=== PATIENT | female | born 1970 | race African-American/Black ===

== ENCOUNTER 2016-07-14 06:45 | Inpatient (IN) | payer OTHER ==
--- NOTE | 2016-07-12 12:04 | HP ---
DATE OF ADMISSION: 07/14/[address] Elizondo: Thank you for asking me to see this 45-year-old woman who is being admitted to the hospital for a to [place] reverse shoulder replacement. The patient has had ongoing right shoulder pain, swelling, and re duced range of motion for the past many months following an accident. REVIEW OF SYSTEMS: Generally unremarkable to all questions except for pain in her right shoulder ar ea which radiates up and down the arm and the neck. She regularly gets gynecologic care. Her last period was on July 08. CURRENT MEDICATIONS: None. ALLERGIES: NONE. FAMILY HISTORY: The patient is . She lives by herself. There is a sister who is also aiden garcia. She was born in [place]. She has no children. PREVIOUS MEDICAL PROBLEMS: Negative except for her accident which occurred about a year ago. SOCIAL HISTORY: The patient is a nonsmoker and does not use significant alcohol. PAST SURGICAL HISTORY: Includes only arthroscopy of the knee. PHYSICAL EXAMINATION: GENERAL: The patient is alert, oriented, pleasant lady in no acute distress. VITAL SIGNS: Blood pressure is 130/80. She is afebrile. Pulse is 92. She weighs 147 pounds. Her height is 5 feet 0 inches tall. HEAD, EYES, EARS, NOSE, AND THROAT: Unremarkable. CHEST: Clear to auscultation. No murmurs are heard. ABDOMEN: Soft without palpable mass, organ, or tenderness. EXTREMITIES: No clubbing, cyanosis, or edema. He has some swelling and significant tenderness over the right shoulder which she cannot move at all without significant pain. NEUROLOGIC: Unremarkable. INITIAL IMPRESSION: Arthritis and pain in the right shoulder, preoperative status. DISCUSSION: The patient's medical status is ____ for planned surgery. Electrocardiogram and chest x-ray are unremarkable. Lymphadenopathy tests have been performed and will be followed too. Thank you for asking us to see Ms. Rodriguez at this time. Dictated By: TY MATHIS MD SR/NTS Conf#: [id number] DID#: [id number]
[~2016-07-14] VITALS: Ht 152.4 cm; Wt 68.0 kg
[2016-07-14] VITALS (27 sets, daily range): BP systolic 113–168; BP diastolic 56–88; PULSE 58–93; RESP 12–25; Ht 152.4 cm; Wt 68.0 kg
--- NOTE | 2016-07-14 06:45 | HPN ---
Date/Time of Note Date/Time of Note DATE: 07/14/16 TIME: 06:45 Interval H&P Admission Note Pt. seen H&P reviewed: No system changes CHAIM NGUYEN MD July 14, 2016 06:45
[2016-07-14] MEDS ORDERED: DEXAMETHASONE 1 MG TAB PO ONE (07:00)
[2016-07-14] MEDS ORDERED: BUPIVACAINE 0.5% (SDV) 30 ML, morphine SULFATE (PF) 8 MG, EPINEPHrine 0.3 MG, KETOROLAC... IRR SCH ×7 (07:00)
[2016-07-14] MEDS ORDERED: PROPOFOL 1000 MG INJ ONE (07:00)
[2016-07-14] MEDS ORDERED: traMADol 50 MG TAB PO ONE (07:00)
[2016-07-14] MEDS ORDERED: CEFAZOLIN 2 GM/50 ML (PMX) 50 ML IVPB ONE (07:00)
[2016-07-14] MEDS ORDERED: TRANEXAMIC ACID 1,000 MG in SOD CHLORIDE 0.9% 100 ML IVPB ONE (07:00)
[2016-07-14] MEDS ORDERED: LACTATED RINGER'S 1,000 ML IV* ONE (07:00)
[2016-07-14] MEDS ORDERED: GABAPENTIN 300 MG CAP PO ONE (07:00)
[2016-07-14] MEDS ORDERED: oxyCODONE (CR) 10 MG TAB [oxyCONTIN] PO ONE (07:00)
[2016-07-14] MEDS ORDERED: PROPOFOL 20 ML ONE (07:43)
[2016-07-14] MEDS ORDERED: CEFAZOLIN 1 GM INJ ONE (07:43)
[2016-07-14] MEDS ORDERED: ROCURONIUM 50 MG INJ ONE (07:43)
[2016-07-14] MEDS ORDERED: GLYCOPYRROLATE 0.4 MG INJ ONE (07:43)
[2016-07-14] MEDS ORDERED: NEOSTIGMINE 3 MG/3 ML SYRINGE ONE (07:43)
[2016-07-14] MEDS ORDERED: FENTAnyl 50 MCG/ML VIAL ONE (07:44)
[2016-07-14] MEDS ORDERED: DEXAMETHASONE 4 MG/ML 1 ML INJ ONE (07:44)
[2016-07-14] MEDS ORDERED: MIDAZOLAM 1 MG/ML 2 ML INJ ONE (07:44)
[2016-07-14] MEDS ORDERED: ONDANSETRON 4 MG INJ ONE (07:44)
[2016-07-14] MEDS ORDERED: ROPIVACAINE 0.5 % 30 ML VIAL ONE (07:45)
[2016-07-14] MEDS ORDERED: THROMBIN 5000 UNIT VIAL ONE (07:55)
[2016-07-14] MEDS ORDERED: CA CHLORIDE 10% 10 ML SYRINGE ONE (07:55)
[2016-07-14] MEDS ORDERED: POLYMYXIN/BACITRACIN 1L IRRIG ONE (07:55)
[2016-07-14] MEDS ORDERED: BUPIVACAINE 0.5%/EPI (SDV) 30 ML INJ ONE (07:55)
[2016-07-14] MEDS ORDERED: METOCLOPRAMIDE 10 MG INJ IV ONE (08:34)
[2016-07-14] MEDS ORDERED: POLYMYXIN/BACITRACIN 1L IRRIG IRR ONE (09:18)
[2016-07-14] MEDS ORDERED: EPHEDrine SULFATE 50 MG/5 ML SYG IV PRN (10:00)
[2016-07-14] MEDS ORDERED: FENTAnyl 50 MCG/ML VIAL IV PRN ×3 (10:00)
[2016-07-14] MEDS ORDERED: hydrALAzine 20 MG INJ IV PRN (10:00)
[2016-07-14] MEDS ORDERED: DIPHENHYDRAMINE 50 MG INJ IV PRN ×2 (10:00→11:00)
[2016-07-14] MEDS ORDERED: LABETALOL HCL 20MG INJ IV PRN (10:00)
[2016-07-14] MEDS ORDERED: HYDROmorphONE (0.2 MG/ML) 10ML SYG IV PRN ×3 (10:00)
[2016-07-14] MEDS ORDERED: MIDAZOLAM 1 MG/ML 2 ML INJ IV PRN (10:00)
[2016-07-14] MEDS ORDERED: MEPERIDINE 25 MG INJ IV PRN (10:00)
[2016-07-14] MEDS ORDERED: ONDANSETRON 4 MG INJ IV PRN ×2 (10:00→11:00)
[2016-07-14] MEDS ORDERED: TRIMETHOBENZAMIDE 100 MG/ML VIAL IM PRN (10:00)
[2016-07-14] MEDS ORDERED: TRANEXAMIC ACID 1,000 MG in SOD CHLORIDE 0.9% 100 ML IV ONE (11:00)
[2016-07-14] MEDS ORDERED: KETOROLAC 15 MG INJ IV PRN (11:00)
[2016-07-14] MEDS ORDERED: MAGNESIUM HYDROXIDE 30ML CUP PO PRN (11:00)
[2016-07-14] MEDS ORDERED: ACETAMINOPHEN 500 MG TAB PO PRN (11:00)
[2016-07-14] MEDS ORDERED: morphine 2 MG INJ IV PRN (11:00)
[2016-07-14] MEDS ORDERED: ZOLPIDEM 5 MG TAB PO PRN (11:00)
[2016-07-14] MEDS ORDERED: morphine 4 MG/ML VIAL IV PRN (11:00)
[2016-07-14] MEDS ORDERED: OXYCODONE/ACETAMINOPHEN (5/325) TAB PO PRN (11:00)
--- NOTE | 2016-07-14 11:05 | OPR ---
DATE OF OPERATION: 07/14/2016 PREOPERATIVE DIAGNOSIS: Right shoulder primary osteoarthritis. POSTOPERATIVE DIAGNOSES: 1. Right shoulder primary osteoarthritis. 2. Right shoulder chronic biceps tendonitis. PROCEDURE PERFORMED: 1. Right open total shoulder replacement. 2. Right open biceps tenodesis. SURGEON: Chaim Elizondo MD TOMOGRAPHIC TECH: Pop Lundberg PA-C Chargeback Specialist surgeon Pop Lundberg PA-C, was asked to be present at my request as a result of the significant complexity associated with this procedure , including positioning of the extremity, manipulation and protection of the neurovascular structures. In my opinion, the assistance offered by a technical artist is insufficient and Mr. Lundberg should be compensated for his time. PROCEDURE IN DETAIL: The procedure and the usual complications were discussed with the patient. In addition, she had some concerns with her skin and the healing process that typically causes keloids in her. I explained to her that we would try to take precautions, including a subcuticular closure, but some skin is still liable to form a keloid, no matter how it is repair. Following administration of general endotracheal anesthesia, the patient was placed in the beach chair position and the right upper extremity was prepped and draped in the usual sterile fashion. An extended deltopectoral incision was then undertaken, exposing the conjoined tendon, retracting it medially. The bicipital groove was entered. Severe bicipital tendonitis was noted. The intra-articular portion of the biceps was resected. The biceps was tenodesed to the bicipital groove using multiple #2 sutures. The subscapularis was then detached. The superior rotator cuff appeared normal. There was severe osteoarthritis on both sides of the joint with very large inferior peripheral osteophyte. The osteophyte was removed. The humeral head cut was then made in the appropriate degree of version and inclination. The head was then retracted and the glenoid exposed. Peripheral capsulectomy undertaken, glenoid exposure. The central canal was entered and prepared for a size 40 mm DePuy glenoid. The actual glenoid was cemented into position with solid fixation. Attention was then directed back to the humerus. The humeral canal was reamed up to the 10 mm size. A 10 mm humeral component with a 44 x 15 humeral head was then implanted with solid fixation. Good position was noted. The joint was taken through a full range of motion with no instability. The joint was then thoroughly irrigated. Subscapularis closed using interrupted #2 sutures that were passed circumferentially around the humerus. Watertight closure of the subscapularis was completed. Again, full range of motion with no instability. The joint was irrigated once again. Closed in layers including Prineo dressing on top which was waterproof. The patient was then placed in an UltraSling, extubated and transported to recovery room in stable condition, tolerated the procedure well. Estimated blood loss for the procedure was 100 mL. Dictated By: CHAIM OROURKE/ANNIE Conf#: [id number] DID#: [id number] KRYSTAL
[2016-07-14] MEDS: CEFAZOLIN 1 GM/50 ML (PMX) 50 ML IVPB SCH ×2 (11:39→18:42)
[2016-07-14] MEDS: DEXAMETHASONE 2 MG TAB PO SCH ×3 (11:47→23:02)
--- NOTE | 2016-07-14 11:47 | RADRPT ---
PROCEDURE: Right shoulder two views CLINICAL INDICATION: Status post right shoulder hemiarthroplasty TECHNIQUE: AP internal and external rotation views of the right shoulder were obtained COMPARISON: None available FINDINGS: Right shoulder hemiarthroplasty is identified. Prosthetic components are in appropriate position and alignment. No fractures are noted. No destructive bony lesions are observed. The acromioclavicul ar joint is grossly unremarkable. Soft tissue air is procedural in nature. IMPRESSION: Right shoulder hemiarthroplasty. Prosthetic components appear in appropriate position and alignment . RPTAT: AA .Aaron Thompson MD, Date Time Electronically viewed and signed by .Aaron Thompson MD, on 07/14/2016 11:47 .P/
--- NOTE | 2016-07-14 18:39 | PN ---
Date/Time of Note Date/Time of Note DATE: 07/14/16 TIME: 18:38 Assessment/Plan VTE Prophylaxis VTE Prophylaxis Intervention: other Lines/Catheters IV Catheter Type (from Nrsg): Peripheral IV Assessment/Plan Problems: (1) Status post reverse total replacement of right shoulder Status: Acute Comment: Otherwise healthy -Irish 45-year-old female post right shoulder replacement surgery. At this time she is doing well without evidence of medical complications. Subjective 24 Hr Interval Summary Free Text/Dictation Patient reports pain is well controlled. She had received extremity block and actually reports that she is not able to move her right hand or feel with the right upper extremity as of this time immediately postop. She reports no shortness of breath no chest pain no palpitations Exam/Review of Systems Vital Signs Vitals Vital Signs Date Time Temp Pulse Resp B/P Pulse Ox O2 Delivery O2 Flow Rate FiO2 07/14/16 13:49 74 12 134/73 100 Room Air 07/14/16 10:59 98.0 Exam Constitutional: alert, oriented Neck: non-tender, supple Respiratory: clear to auscultation, normal air movement Cardiovascular: nl pulses, regular rate and rhythm Gastrointestinal: nl liver, spleen, non-tender, soft Extremities: other (Right upper extremity without voluntary movement or sensation at this moment) Medications Medications Current Medications Lactated Ringer's 1,000 ml @ 10 mls/hr Q24H ONCE IV* ; Start 07/14/16 at 07:00 ; Stop 07/15/16 at 06:59 Cefazolin Sodium (Ancef 1 Gm/50 ml (Pmx)) 50 ml @ 100 mls/hr Q8H IVPB Last administered on 07/14/16t 11:39; Admin Dose 100 MLS/HR; Start 07/14/16 at 11:00 ; Stop 07/15/16 at 03:29 Senna/Docusate Sodium (Senokot-S) 1 tab BID PO ; Start 07/14/16 at 21:00 Simethicone (Mylicon) 80 mg TID PRN PO DISTENSION/GAS/BLOATING; Start 07/14/16 at 11:00 Magnesium Hydroxide (Milk Of Mag) 30 ml BID PRN PO CONSTIPATION; Start at 11:00 Acetaminophen (Tylenol Tab) 1,000 mg Q4H PRN PO TEMP GREATER THAN 100.4F; Start 07/14/16 at 11:00 Dexamethasone (Decadron) 2 mg Q6 PO Last administered on 07/14/16t 11:47; Admin Dose 2 MG; Start 07/14/16 at 12:00; Stop 07/15/16 at 06:01 Gabapentin (Neurontin) 300 mg HS PO ; Start 07/14/16 at 21:00 Oxycodone/ Acetaminophen (Percocet (5/ 325)) 1 tab Q4H PRN PO PAIN LEVEL 1-5; Start 07/14/16 at 11:00 Oxycodone/ Acetaminophen (Percocet (5/ 325)) 2 tab Q4H PRN PO PAIN LEVEL 6-10; Start 07/14/16 at 11:00 Morphine Sulfate (morphine) 2 mg Q2H PRN IV PAIN LEVEL 1-5; Start 07/14/16 at 11:00 Morphine Sulfate (morphine) 4 mg Q4H PRN IV PAIN LEVEL 6-10; Start 07/14/16 at 11:00 Ketorolac Tromethamine (Toradol) 15 mg Q6H PRN IV PAIN; Start 07/14/16 at 11:00 ; Stop 07/17/16 at 10:59 Ondansetron HCl (Zofran Inj) 4 mg Q6H PRN IV NAUSEA AND/OR VOMITING; Start at 11:00 Diphenhydramine HCl (Benadryl) 25 mg Q6H PRN IV PRURITUS; Start 07/14/16 at 11: 00 Aspirin (Aspirin) 81 mg DAILY PO ; Start 07/15/16 at 09:00 YARELY THORNE MD July 14, 2016 18:39
--- NOTE | 2016-07-14 18:49 | CONS ---
DATE OF ADMISSION: 07/14/2016 DATE OF CONSULTATION: 07/14/2016 The patient had surgery with Dr. Nathan Elizondo today. The patient is seen postoperatively 07/14/2016. The patient is resting in bed.. No particular complaints other than some tingling in her right hand. Other than that, she has been doing relatively well from a pain standpoint. VITAL SIGNS: The patient's vital signs revealed the following, blood pressure was 134/72, pulse was 74 and regular, respirations 17, O2 saturation 100%. The patient was afebrile earlier. HEENT: Unremarkable. LUNGS: Clear. HEART: Reveals a regular exam. EXTREMITIES: Evidence of recent right shoulder surgery being noted. IMPRESSION: 1. Status post right shoulder surgery. 2. Stable health. DISCUSSION: Plan is to follow this patient along with you. At this point, she seems to be medically stable. Hopefully, her numbness in her fingers will resolve by the morning. Thank you again, Dr. Elizondo, for allowing us to participate in the care of this patient. Dictated By: KARLI SULLIVAN/ANNIE Conf#: [id number] DID#: [id number] MTDSam
[2016-07-14] MEDS: SENNA/DOCUSATE NA (8.6MG/50MG) TAB PO SCH (20:44)
[2016-07-14] MEDS: GABAPENTIN 300 MG CAP PO SCH (20:44)
[2016-07-14] MEDS: OXYCODONE/ACETAMINOPHEN (5/325) TAB PO PRN (23:06)
[2016-07-15] MEDS: CEFAZOLIN 1 GM/50 ML (PMX) 50 ML IVPB SCH (03:05)
[2016-07-15] MEDS: DEXAMETHASONE 2 MG TAB PO SCH (06:05)
--- NOTE | 2016-07-15 07:43 | PN ---
Date/Time of Note Date/Time of Note DATE: 07/15/16 TIME: 07:39 Assessment/Plan VTE Prophylaxis VTE Prophylaxis Intervention: ambulation Lines/Catheters IV Catheter Type (from Nrsg): Peripheral IV Central line still needed: No Assessment/Plan Chief Complaint/Hosp Course POD1 right shoulder hemiarthroplasty Problems: Assessment/Plan S/P right shoulder hemiarthroplasty, recovering as expected. 1. PT/OT today 2. Pain control with oral pain medication 3. Home when clears pt/ot and cleared by medicine. Subjective 24 Hr Interval Summary Free Text/Dictation Having a lot of pain in the right shoulder after the block wore off. No nausea. Otherwise feeling ok. Constitutional: No chills, No diaphoresis, No disoriented, No febrile, No improved, No no complaints, No other, No poor po, No requiring IVF, No requiring O2 Respiratory: No cough, No no complaints, No other, No pain, No pleuritic pain, No shortness of breath, No sputum, No wheezing Cardiovascular: No chest pain, No edema, No lightheadedness, No no complaints, No orthopenea, No other, No palpitations, No paroxysmal nocturnal dyspnea Exam/Review of Systems Vital Signs Vitals Vital Signs Date Time Temp Pulse Resp B/P Pulse Ox O2 Delivery O2 Flow Rate FiO2 07/14/16 23:28 98.2 101 20 117/63 98 07/14/16 13:49 Room Air Intake and Output 07/14/16 07/14/16 07/15/16 14:59 22:59 06:59 Intake Total 2200 ml 600 ml 550 ml Output Total 2130 ml 600 ml 250 ml Balance 70 ml 0 ml 300 ml Exam Right upper extremity Hand warm and well perfused incision clean and dry sling in place able to open, close and abduct all fingers. Respiratory: normal air movement Cardiovascular: nl pulses Extremities: normal pulses Medications Medications Current Medications Senna/Docusate Sodium (Senokot-S) 1 tab BID PO Last administered on 07/14/16t 20:44; Admin Dose 1 TAB; Start 07/14/16 at 21:00 Simethicone (Mylicon) 80 mg TID PRN PO DISTENSION/GAS/BLOATING; Start 07/14/16 at 11:00 Magnesium Hydroxide (Milk Of Mag) 30 ml BID PRN PO CONSTIPATION; Start at 11:00 Acetaminophen (Tylenol Tab) 1,000 mg Q4H PRN PO TEMP GREATER THAN 100.4F; Start 07/14/16 at 11:00 Gabapentin (Neurontin) 300 mg HS PO Last administered on 07/14/16 20:44; Admin Dose 300 MG; Start 07/14/16 at 21:00 Oxycodone/ Acetaminophen (Percocet (5/ 325)) 1 tab Q4H PRN PO PAIN LEVEL 1-5; Start 07/14/16 at 11:00 Oxycodone/ Acetaminophen (Percocet (5/ 325)) 2 tab Q4H PRN PO PAIN LEVEL 6-10 Last administered on 07/14/16 23:06; Admin Dose 2 TAB; Start 07/14/16 at 11:00 Morphine Sulfate (morphine) 2 mg Q2H PRN IV PAIN LEVEL 1-5; Start 07/14/16 at 11:00 Morphine Sulfate (morphine) 4 mg Q4H PRN IV PAIN LEVEL 6-10; Start 07/14/16 at 11:00 Ketorolac Tromethamine (Toradol) 15 mg Q6H PRN IV PAIN; Start 07/14/16 at 11:00 ; Stop 07/17/16 at 10:59 Ondansetron HCl (Zofran Inj) 4 mg Q6H PRN IV NAUSEA AND/OR VOMITING; Start at 11:00 Diphenhydramine HCl (Benadryl) 25 mg Q6H PRN IV PRURITUS; Start 07/14/16 at 11: 00 Aspirin (Aspirin) 81 mg DAILY PO ; Start 07/15/16 at 09:00 NAKUL OLIVAS MD July 15, 2016 07:43
[2016-07-15 08:22] VITALS: BP 137/77; RESP 18
--- NOTE | 2016-07-15 08:30 | PN ---
Date/Time of Note Date/Time of Note DATE: 07/15/16 TIME: 08:25 Assessment/Plan VTE Prophylaxis VTE Prophylaxis Intervention: ambulation, SCD's (on asa) Lines/Catheters IV Catheter Type (from Nrsg): Peripheral IV Subjective 24 Hr Interval Summary Free Text/Dictation still uncomfortable, trying to use left arm meede morphine for pain alert, lungs are clear, hr ok cont w current care, ot, pt, ice home per ortho Musculoskeletal: bone/joint pain Exam/Review of Systems Vital Signs Vitals Vital Signs Date Time Temp Pulse Resp B/P Pulse Ox O2 Delivery O2 Flow Rate FiO2 07/15/16 08:22 98.2 90 18 137/77 94 07/14/16 13:49 Room Air Intake and Output 07/14/16 07/14/16 07/15/16 15:00 23:00 07:00 Intake Total 2200 ml 600 ml 550 ml Output Total 2130 ml 600 ml 250 ml Balance 70 ml 0 ml 300 ml Medications Medications Current Medications Senna/Docusate Sodium (Senokot-S) 1 tab BID PO Last administered on 07/14/16 20:44; Admin Dose 1 TAB; Start 07/14/16 at 21:00 Simethicone (Mylicon) 80 mg TID PRN PO DISTENSION/GAS/BLOATING; Start 07/14/16 at 11:00 Magnesium Hydroxide (Milk Of Mag) 30 ml BID PRN PO CONSTIPATION; Start at 11:00 Acetaminophen (Tylenol Tab) 1,000 mg Q4H PRN PO TEMP GREATER THAN 100.4F; Start 07/14/16 at 11:00 Gabapentin (Neurontin) 300 mg HS PO Last administered on 07/14/16 20:44; Admin Dose 300 MG; Start 07/14/16 at 21:00 Oxycodone/ Acetaminophen (Percocet (5/ 325)) 1 tab Q4H PRN PO PAIN LEVEL 1-5; Start 07/14/16 at 11:00 Oxycodone/ Acetaminophen (Percocet (5/ 325)) 2 tab Q4H PRN PO PAIN LEVEL 6-10 Last administered on 07/14/16 23:06; Admin Dose 2 TAB; Start 07/14/16 at 11:00 Morphine Sulfate (morphine) 2 mg Q2H PRN IV PAIN LEVEL 1-5 Last administered on 07/15/16t 07:47; Admin Dose 2 MG; Start 07/14/16 at 11:00 Morphine Sulfate (morphine) 4 mg Q4H PRN IV PAIN LEVEL 6-10; Start 07/14/16 at 11:00 Ketorolac Tromethamine (Toradol) 15 mg Q6H PRN IV PAIN; Start 07/14/16 at 11:00 ; Stop 07/17/16 at 10:59 Ondansetron HCl (Zofran Inj) 4 mg Q6H PRN IV NAUSEA AND/OR VOMITING; Start at 11:00 Diphenhydramine HCl (Benadryl) 25 mg Q6H PRN IV PRURITUS; Start 07/14/16 at 11: 00 Aspirin (Aspirin) 81 mg DAILY PO ; Start 07/15/16 at 09:00 TY MATHIS MD July 15, 2016 08:30
[2016-07-15] MEDS: SENNA/DOCUSATE NA (8.6MG/50MG) TAB PO SCH ×2 (09:00→09:04)
[2016-07-15] MEDS: ASPIRIN 81 MG TAB PO SCH (09:00)
--- NOTE | 2016-07-15 09:07 | CONS ---
DATE OF ADMISSION: 07/14/2016 DATE OF CONSULTATION: 07/15/2016 TYPE OF CONSULTATION: Endocrinology followup. TIME: Approximately 7:50 a.m. HISTORY OF PRESENT ILLNESS: The patient out of bed, in the bathroom, coming out of the bathroom at the time of my visit, complaining of severe right shoulder pain postoperatively, apparently without any relief from her current pain medication; however, does the numbness and tingling that she compla ined about yesterday seems to be gone. The patient's vital signs revealed the following: VITAL SIGNS: The patient's blood pressure was 137/77, pulse 90, respirations 18, temperature 98.2, O2 saturation 94% on room air. HEENT: Unremarkable. LUNGS: Clear. HEART: Reveals a regular rhythm. EXTREMITIES: Right shoulder brace post op. IMPRESSION: 1. Status post right shoulder surgery. 2. Right shoulder pain. 3. Stable health. DISCUSSION: Patient apparently still in a fair amount of pain being managed by Dr. Elizondo, medical ly; however, everything seems stable at this particular point in time. Thank you again, Dr. Elizondo, for allowing us to participate in the care of this patient. Dictated By: KARLI SULLIVAN/ANNIE Conf#: [id number] DID#: [id number]
[2016-07-15] MEDS: OXYCODONE/ACETAMINOPHEN (5/325) TAB PO PRN ×4 (09:35→23:59)
[2016-07-15 20:31] VITALS: BP 128/66; RESP 20
[2016-07-15] MEDS: GABAPENTIN 300 MG CAP PO SCH (21:14)
[2016-07-16 00:12] VITALS: BP 126/70; RESP 20
[2016-07-16 07:00] VITALS: BP 126/73; RESP 20
[2016-07-16] MEDS: ASPIRIN 81 MG TAB PO SCH (07:42)
[2016-07-16] MEDS: SENNA/DOCUSATE NA (8.6MG/50MG) TAB PO SCH (07:42)
--- NOTE | 2016-07-16 09:15 | PN ---
Date/Time of Note Date/Time of Note DATE: 07/16/16 TIME: 09:13 Assessment/Plan VTE Prophylaxis VTE Prophylaxis Intervention: ambulation Lines/Catheters IV Catheter Type (from Nrsg): Saline Lock Central line still needed: No Urinary Cath still in place: No Assessment/Plan Chief Complaint/Hosp Course POD2 right shoulder hemiarthroplasty Problems: Assessment/Plan S/P right shoulder hemiarthroplasty, recovering as expected. 1. PT/OT today 2. Pain control with oral pain medication 3. Home today Subjective 24 Hr Interval Summary Free Text/Dictation Doing better this am, had a lot of pain yesterday. Improved with toradol dose and ice. Moving hand/wrist regularly Constitutional: no complaints Respiratory: no complaints Cardiovascular: no complaints Musculoskeletal: bone/joint pain Exam/Review of Systems Vital Signs Vitals Vital Signs Date Time Temp Pulse Resp B/P Pulse Ox O2 Delivery O2 Flow Rate FiO2 07/16/16 07:00 98.8 99 20 126/73 97 07/14/16 13:49 Room Air Intake and Output 07/15/16 07/15/16 07/16/16 14:59 22:59 06:59 Intake Total 1720 ml 800 ml Output Total 700 ml Balance 1720 ml 100 ml Exam RUE Fingers wwp able to demonstrate finger extension/flexion/abduction 2+radial pulse incision clean and dry ice over shoulder, sling intact Constitutional: alert, oriented Psych: no complaints Respiratory: normal air movement Cardiovascular: regular rate and rhythm Extremities: normal pulses Medications Medications Current Medications Senna/Docusate Sodium (Senokot-S) 1 tab BID PO Last administered on 07/16/16 07:42; Admin Dose 1 TAB; Start 07/14/16 at 21:00 Simethicone (Mylicon) 80 mg TID PRN PO DISTENSION/GAS/BLOATING; Start 07/14/16 at 11:00 Magnesium Hydroxide (Milk Of Mag) 30 ml BID PRN PO CONSTIPATION; Start at 11:00 Acetaminophen (Tylenol Tab) 1,000 mg Q4H PRN PO TEMP GREATER THAN 100.4F; Start 07/14/16 at 11:00 Gabapentin (Neurontin) 300 mg HS PO Last administered on 07/15/16 21:14; Admin Dose 300 MG; Start 07/14/16 at 21:00 Oxycodone/ Acetaminophen (Percocet (5/ 325)) 1 tab Q4H PRN PO PAIN LEVEL 1-5; Start 07/14/16 at 11:00 Oxycodone/ Acetaminophen (Percocet (5/ 325)) 2 tab Q4H PRN PO PAIN LEVEL 6-10 Last administered on 07/15/16 23:59; Admin Dose 2 TAB; Start 07/14/16 at 11:00 Morphine Sulfate (morphine) 2 mg Q2H PRN IV PAIN LEVEL 1-5 Last administered on 07/15/16 07:47; Admin Dose 2 MG; Start 07/14/16 at 11:00 Morphine Sulfate (morphine) 4 mg Q4H PRN IV PAIN LEVEL 6-10; Start 07/14/16 at 11:00 Ketorolac Tromethamine (Toradol) 15 mg Q6H PRN IV PAIN Last administered on 07:42; Admin Dose 15 MG; Start 07/14/16 at 11:00; Stop 07/17/16 at 10:59 Ondansetron HCl (Zofran Inj) 4 mg Q6H PRN IV NAUSEA AND/OR VOMITING; Start at 11:00 Diphenhydramine HCl (Benadryl) 25 mg Q6H PRN IV PRURITUS; Start 07/14/16 at 11: 00 Aspirin (Aspirin) 81 mg DAILY PO Last administered on 07/16/16 07:42; Admin Dose 81 MG; Start 07/15/16 at 09:00 NAKUL OLIVAS MD July 16, 2016 09:15
--- NOTE | 2016-07-16 09:33 | CONS ---
Date/Time of Note Date/Time of Note DATE: 07/16/16 TIME: 09:31 Assessment/Plan Assessment/Plan Problems: (1) Status post reverse total replacement of right shoulder Status: Acute Comment: At this point time she is done well and is ready for discharge. She will direct specific questions regarding use of the operated arm timing to the surgical team. Consultation Date/Type/Reason Admit Date/Time July 14, 2016 at 06:45 Initial Consult Date 07/14/2016 Type of Consultation: Internal medicine Reason for Consultation Postoperative assistance with medical matters Referring Provider: CHAIM NGUYEN MD 24 HR Interval Summary Free Text/Dictation Patient reports outside of pain in the shoulder and the desire to be able to use it more and have numerous questions answered she is doing well Constitutional: no complaints Detailed Summary Respiratory: no complaints Cardiovascular: no complaints Gastrointestinal: no complaints Exam/Review of Systems Vital Signs Vitals Vital Signs Date Time Temp Pulse Resp B/P Pulse Ox O2 Delivery O2 Flow Rate FiO2 07/16/16 07:00 98.8 99 20 126/73 97 07/14/16 13:49 Room Air Intake and Output 07/15/16 07/15/16 07/16/16 15:00 23:00 07:00 Intake Total 1720 ml 800 ml Output Total 700 ml Balance 1720 ml 100 ml Exam Constitutional: alert, oriented Neck: non-tender, supple Respiratory: clear to auscultation, normal air movement Medications Medications Current Medications Senna/Docusate Sodium (Senokot-S) 1 tab BID PO Last administered on 07/16/16 07:42; Admin Dose 1 TAB; Start 07/14/16 at 21:00 Simethicone (Mylicon) 80 mg TID PRN PO DISTENSION/GAS/BLOATING; Start 07/14/16 at 11:00 Magnesium Hydroxide (Milk Of Mag) 30 ml BID PRN PO CONSTIPATION; Start at 11:00 Acetaminophen (Tylenol Tab) 1,000 mg Q4H PRN PO TEMP GREATER THAN 100.4F; Start 07/14/16 at 11:00 Gabapentin (Neurontin) 300 mg HS PO Last administered on 07/15/16 21:14; Admin Dose 300 MG; Start 07/14/16 at 21:00 Oxycodone/ Acetaminophen (Percocet (5/ 325)) 1 tab Q4H PRN PO PAIN LEVEL 1-5; Start 07/14/16 at 11:00 Oxycodone/ Acetaminophen (Percocet (5/ 325)) 2 tab Q4H PRN PO PAIN LEVEL 6-10 Last administered on 07/15/16 23:59; Admin Dose 2 TAB; Start 07/14/16 at 11:00 Morphine Sulfate (morphine) 2 mg Q2H PRN IV PAIN LEVEL 1-5 Last administered on 07/15/16 07:47; Admin Dose 2 MG; Start 07/14/16 at 11:00 Morphine Sulfate (morphine) 4 mg Q4H PRN IV PAIN LEVEL 6-10; Start 07/14/16 at 11:00 Ketorolac Tromethamine (Toradol) 15 mg Q6H PRN IV PAIN Last administered on 07:42; Admin Dose 15 MG; Start 07/14/16 at 11:00; Stop 07/17/16 at 10:59 Ondansetron HCl (Zofran Inj) 4 mg Q6H PRN IV NAUSEA AND/OR VOMITING; Start at 11:00 Diphenhydramine HCl (Benadryl) 25 mg Q6H PRN IV PRURITUS; Start 07/14/16 at 11: 00 Aspirin (Aspirin) 81 mg DAILY PO Last administered on 07/16/16 07:42; Admin Dose 81 MG; Start 07/15/16 at 09:00 YARELY THORNE MD July 16, 2016 09:33
[2016-07-16] MEDS: OXYCODONE/ACETAMINOPHEN (5/325) TAB PO PRN (12:15)
--- NOTE | 2016-07-17 12:45 | DS ---
Date/Time of Note Date/Time of Note DATE: 07/17/16 TIME: 12:44 Discharge Summary Admission/Discharge Info Admit Date/Time July 14, 2016 at 06:45 Discharge Date/Time July 16, 2016 at 14:42 Final Diagnosis Shoulder arthritis Patient Condition: Good Hospital Course Underwent TSR, with no problem except for pain. She was d/c'd on POD2 Home Meds No Active Prescriptions or Reported Meds Primary Care Provider Not On Staff Doctor CHAIM NGUYEN MD July 17, 2016 12:45
== END 2016-07-16 14:42 | disposition home or self-care (01) | DRG 483 ==
LOC: REC 06:45 → MS1 14:10
PROVIDERS: ADMIT Orthopaedic Surgery; ATTEND Orthopaedic Surgery
PROC: 0LS30ZZ Reposition Right Upper Arm Tendon, Open Approach (ICD-10-PCS; 2016-07-14)
PROC: 0RRJ0JZ Replacement of Right Shoulder Joint with Synthetic Substitute, Open Approach (ICD-10-PCS; principal; 2016-07-14 09:00)
DX: M19.011 Primary osteoarthritis, right shoulder (principal); M65.811 Other synovitis and tenosynovitis, right shoulder
CPT/HCPCS: 84703; 86999; 97110; 97162; 97530; C1713; C1776; J0171; J0690; J0735; J1100; J1200; J1885; J2250; J2270; J2274; J2405; J2710; J2765; J2795; J3010; J3370; J7120

== ENCOUNTER 2018-03-14 09:52 | Observation (INO) | payer OTHER ==
[~2018-03-14] VITALS: Ht 154.9 cm; Wt 75.3 kg
[2018-03-14] VITALS (42 sets, daily range): BP systolic 91–153; BP diastolic 56–88; PULSE 76–108; RESP 14–40; Ht 154.9 cm; Wt 75.3 kg
--- NOTE | 2018-03-14 08:57 | PREOPHP ---
DATE OF ADMISSION: 03/14/2018 HISTORY OF PRESENT ILLNESS: This is a 47-year-old lady, 0. Her last normal menstrual period was about 11/2017. She was admitted as outpatient for D and C, hysteroscopy and suction curettage. This patient claims that she had been bleeding x2 to 3 months Since November of last year and that sh e bleeds heavy and that lasts for at least 5 to 7 days and then huge blood clots. She had positive e ndometrial cells on her Pap smear. The patient does not have any children and that she wanted to hav e the procedure done under general anesthesia, the D and C, hysteroscopy and suction curettage. She refused to have endometrial biopsy done in the clinic. PAST MEDICAL HISTORY: No history of TB, asthma. ALLERGIES: PENICILLIN. MEDICATIONS: She had menarche at the age of 12, every 28 days interval, 3 to 4 days duration, and mo derate in amount. FAMILY HISTORY: Mother, brother and father have high blood pressure and a brother and father have di abetes. PAST SURGICAL HISTORY: She had 2 LEEP surgeries. She has a shoulder replacement x2. REVIEW OF SYSTEMS: CARDIOVASCULAR: No chest pains. RESPIRATORY: No cough. GASTROINTESTINAL: No diarrhea, no vomiting. GENITOURINARY: No dysuria. PHYSICAL EXAMINATION: GENERAL: Reveals a conscious, coherent lady and in no acute distress. VITAL SIGNS: Her blood pressure 120/80, pulse rate 80 per minute, respirations 16 per minute. BREASTS, HEART AND LUNGS: Within normal limits. ABDOMEN: Soft. No organomegaly. PELVIC: Revealed the cervix to be firm, uterus of normal size, and adnexa were negative for masses. RECTAL: Confirmed the pelvic findings. EXTREMITIES: No pedal edema. ADMITTING DIAGNOSIS: Menometrorrhagia and endometrial thickening, rule out endometrial hyperplasia. PLAN: The patient was planned to have the above procedures. Dictated By: SAUD FOLEY/ANNIE Conf#: [id number] DID#: [id number]
[~2018-03-14 09:52] MED LIST: DESFLURANE 15 MIN ONE; LIDOCAINE 2% (SDV) 5 ML INJ ONE
[2018-03-14] MEDS ORDERED: TRAM1TAB58 PO (10:30)
[2018-03-14] MEDS ORDERED: MELO15TA30 PO (10:31)
--- NOTE | 2018-03-14 12:09 | PREAC ---
Date/Time of Note Date/Time of Note DATE: 03/14/18 TIME: 12:09 Anesthesia Eval and Record Evaluation Time Pre-Procedure Interview DATE: 03/14/18 TIME: 12:09 Age 47 Sex female NPO: 8 hrs Preoperative diagnosis anemia Planned procedure suction d&c Past Medical History Past Medical History: Includes GI: Obesity Surgery & Anesthesia Issues No known issue Meds Anticoagulation: No Beta Jacky within 24 hr: No Reason Beta Jacky not given: Pt. not on B-Jacky Reported Medications Meloxicam* (Mobic*) 15 Mg Tablet, 15 MG PO DAILY, #30 TAB 03/14/18 Tramadol HCl/Acetaminophen (Ultracet Tablet) 1 Each Tablet, 1 EACH PO Q6 PRN for PAIN, TAB 03/14/18 Meds reviewed: Yes Allergies Coded Allergies: Penicillins (Verified Allergy, Unknown, 03/14/18) whey (Verified Allergy, Unknown, 03/14/18) Allergies Reviewed: Yes Labs/Studies Labs Reviewed: Reviewed by anesthesiologist test: Negative Studies: ECG Pre-procedure Exam Last vitals Vital Signs Date Temp Pulse Resp B/P (MAP) Pulse Ox O2 O2 Flow FiO2 Time Delivery Rate 03/14/18 98.0 76 16 121/76 99 Room Air 11:03 (91) Airway: Adequate mouth opening, Adequate thyromental dist Mallampati: Mallampati II Teeth: Normal Lung: Normal Heart: Normal ASA Physical Status ASA physical status: 2 Emergency: None Planned Anesthetic General/MAC: ETT Pre-operative Attestations Prior to commencing anesthesia and surgery, the patient was re-evaluated, there was verification of: *The patient's identity *The results of appropriate recent lab work and preoperative vital signs *The above evaluation not changing prior to induction *Anesthetic plan, risk benefits, alternative and complications discussed with patient/family; questions answered; patient/family understands, accepts and wishes to proceed. BORA MANNING Mar 14, 2018 12:09
[2018-03-14] MEDS ORDERED: MEPERIDINE 25 MG INJ IV PRN (12:30)
[2018-03-14] MEDS ORDERED: DIPHENHYDRAMINE 50 MG INJ IV PRN (12:30)
[2018-03-14] MEDS ORDERED: ALBUTEROL 0.083% (NEB) 2.5 MG/3 ML AMP HHN PRN (12:30)
[2018-03-14] MEDS ORDERED: METOCLOPRAMIDE 10 MG INJ IV PRN (12:30)
[2018-03-14] MEDS ORDERED: HYDROmorphONE 1 MG/5 ML IV SYRINGE IV PRN ×3 (12:30)
[2018-03-14] MEDS ORDERED: ONDANSETRON 4 MG INJ IV PRN (12:30)
[2018-03-14] MEDS ORDERED: FENTAnyl 50 MCG/ML VIAL IV PRN ×2 (12:30)
[2018-03-14] MEDS ORDERED: FENTAnyl 50 MCG/ML VIAL ONE (12:33)
[2018-03-14] MEDS ORDERED: MIDAZOLAM 1 MG/ML 2 ML INJ ONE (12:38)
[2018-03-14] MEDS ORDERED: SUCCINYLCHOLINE CHLORIDE 100 MG/5 ML SYG IV ONE (12:49)
[2018-03-14] MEDS ORDERED: PROPOFOL 20 ML ONE (12:49)
--- NOTE | 2018-03-14 13:32 | SIPON ---
Date/Time of Note Date/Time of Note DATE: 03/14/18 TIME: 13:31 Operative Report Preoperative Diagnosis MENORRHAGIA FIBROID Postoperative Diagnosis MENORRHAGIA FIBROID PENDING PATHOLOGY Operation/Procedure Performed D&C HYSTEROSCOPY Surgeon see signature line primary teaching assistant HAM TRIMMER Anesthesia: general Estimated blood loss: minimal Transfusion Required none Specimen ECC EMC Grafts/Implants none Complications none SAUD REAVES MD Mar 14, 2018 13:32
[2018-03-14] MEDS: FENTAnyl 50 MCG/ML VIAL IV PRN ×2 (14:12→14:23)
[2018-03-14] MEDS: ACETAMINOPHEN 325 MG TAB PO PRN ×2 (17:44→23:52)
[2018-03-14] MEDS ORDERED: HYDROCODONE/APAP (5/325) TAB PO PRN (18:00)
[2018-03-14] MEDS: OXYCODONE/ACETAMINOPHEN (10/325) TAB PO PRN (21:01)
[2018-03-15 00:20] VITALS: BP 115/61; PULSE 96; RESP 18
[2018-03-15] MEDS: OXYCODONE/ACETAMINOPHEN (10/325) TAB PO PRN ×3 (01:20→14:07)
[2018-03-15 04:29] VITALS: BP 107/57; PULSE 92; RESP 18
--- NOTE | 2018-03-15 07:08 | PAC ---
Date/Time of Note Date/Time of Note DATE: 03/15/18 TIME: 07:08 Post-Anesthesia Notes Post-Anesthesia Note Last documented vital signs Vital Signs Date Temp Pulse Resp B/P (MAP) Pulse Ox O2 O2 Flow FiO2 Time Delivery Rate 03/15/18 98.5 92 18 107/57 98 04:29 (74) 03/14/18 Room Air 20:40 03/14/18 8.0 13:10 Activity: WNL Respiratory function: WNL Cardiovascular function: WNL Mental status: Baseline Pain reasonably controlled: Yes Hydration appropriate: Yes Nausea/Vomiting absent: Yes BORA MANNING Mar 15, 2018 07:08
[2018-03-15 08:12] VITALS: BP 122/82; PULSE 100; RESP 18
[2018-03-15] MEDS ORDERED: NA PHOSPHATE/BIPHOS 133 ML ENEMA PR ONE (08:30)
[2018-03-15] MEDS ORDERED: MAGNESIUM HYDROXIDE 30ML CUP PO ONE (08:30)
[2018-03-15] MEDS: CEPASTAT LOZENGE MT PRN ×5 (08:38→20:59)
[2018-03-15] MEDS ORDERED: DIPHENHYDRAMINE 25 MG CAP PO PRN (10:30)
[2018-03-15] MEDS ORDERED: NA PHOSPHATE/BIPHOS 133 ML ENEMA PR PRN (12:30)
[2018-03-15] MEDS ORDERED: MAGNESIUM HYDROXIDE 30ML CUP PO PRN (12:30)
[2018-03-15 15:05] VITALS: BP 114/71; PULSE 88; RESP 20
--- NOTE | 2018-03-15 16:19 | CONS ---
Date/Time of Note Date/Time of Note DATE: 03/15/18 TIME: 16:16 Assessment/Plan Assessment/Plan Hospital Course 1. Sore throat secondary to recent intubation from surgery yesterday Reassurance Throat lozenges 2. Neck pain Onset of neck pain was after surgery, no lymphadenopathy is noted and patient clearly has muscular tenderness Warm compress and NSAIDs Patient is stable for DC per internal medicine Result Diagram: 03/15/18 0433 03/15/18 0433 Results 24hrs Laboratory Tests Test 03/14/18 17:11 03/15/18 04:33 White Blood Count 11.2 H 8.7 # Red Blood Count 4.39 4.12 L Hemoglobin 13.4 12.3 Hematocrit 39.3 37.2 Mean Corpuscular Volume 89.5 90.3 Mean Corpuscular Hemoglobin 30.5 29.9 Mean Corpuscular Hemoglobin Concent 34.1 33.1 Red Cell Distribution Width 12.0 12.2 Platelet Count 284 263 Mean Platelet Volume 10.1 10.3 Immature Granulocytes % 0.300 0.300 Neutrophils % 84.1 H 62.0 Lymphocytes % 11.1 L 29.1 Monocytes % 3.5 5.3 Eosinophils % 0.7 3.0 Basophils % 0.3 0.3 Nucleated Red Blood Cells % 0.0 0.0 Immature Granulocytes # 0.030 0.030 Neutrophils # 9.5 H 5.4 Lymphocytes # 1.3 2.5 Monocytes # 0.4 0.5 Eosinophils # 0.1 0.3 Basophils # 0.0 0.0 Nucleated Red Blood Cells # 0.0 0.0 Sodium Level 135 Potassium Level 4.1 Chloride Level 101 Carbon Dioxide Level 26 Anion Gap 8 Blood Urea Nitrogen 13 Creatinine 0.73 Est Glomerular Filtrat Rate mL/min > 60 Glucose Level 119 Calcium Level 8.8 Consultation Date/Type/Reason Admit Date/Time Mar 14, 2018 at 18:07 Hx of Present Illness Patient is a 47-year-old female with a history of shoulder replacement who presents for menorrhagia and underwent D&C HYSTEROSCOPY yesterday. Consult was requested due to throat pain and pain in the neck. Patient has no other complai nts this time. Constitutional: no complaints, improved Eyes: no complaints ENT: sore throat Respiratory: no complaints Cardiovascular: no complaints Gastrointestinal: no complaints Genitourinary: no complaints Musculoskeletal: neck pain Skin: no complaints Neurologic: no complaints Endocrine: no complaints Lymphatic: no complaints Psychological: no complaints, nl mood/affect Immunologic: no complaints Past Medical History As per HPI Medications Current Medications Acetaminophen (Tylenol Tab) 650 mg Q4H PRN PO MILD PAIN(1-3)OR ELEVATED TEMP Last administered on 03/14/18at 17:44; Admin Dose 650 MG; Start 03/14/18 at 14:00 Oxycodone/ Acetaminophen (Endocet (10/ 325)) 1 tab Q4H PRN PO MODERATE PAIN LEVEL 4-6 Last administered on 03/15/18at 14:07; Admin Dose 1 TAB; Start 03/14/18 at 20:30 Phenol (Cepastat Lozenge) 1 lozenge Q1H PRN MT SORE THROAT Last administered on 03/15/18at 14:19; Admin Dose 1 LOZENGE; Start 03/15/18 at 08:30 Diphenhydramine HCl (Benadryl) 25 mg Q6H PRN PO ITCHING Last administered on 03/15/18at 10:23; Admin Dose 25 MG; Start 03/15/18 at 10:30 Allergies: Coded Allergies: Penicillins (Verified Allergy, Unknown, 03/14/18) whey (Verified Allergy, Unknown, 03/14/18) Family History Significant Family History: no pertinent family hx Social History Alcohol Use: rarely Smoking Status: Never smoker Drug Use: none Exam/Review of Systems Vital Signs Vitals Vital Signs Date Temp Pulse Resp B/P (MAP) Pulse Ox O2 O2 Flow FiO2 Time Delivery Rate 03/15/18 98.3 88 20 114/71 96 Room Air 15:05 (85) 03/14/18 8.0 13:10 Intake and Output 03/14/18 03/14/18 03/15/18 1515:00 23:00 07:00 IntakeIntake Total 500 ml OutputOutput Total 10 ml BalanceBalance 490 ml Exam Constitutional: alert, oriented Respiratory: clear to auscultation Cardiovascular: regular rate and rhythm Gastrointestinal: soft; No distended Musculoskeletal: nl extremities to inspection Medications Medications Current Medications Acetaminophen (Tylenol Tab) 650 mg Q4H PRN PO MILD PAIN(1-3)OR ELEVATED TEMP Last administered on 03/14/18at 17:44; Admin Dose 650 MG; Start 03/14/18 at 14:00 Oxycodone/ Acetaminophen (Endocet (10)) 1 tab Q4H PRN PO MODERATE PAIN LEVEL 4-6 Last administered on 03/15/18at 14:07; Admin Dose 1 TAB; Start 03/14/18 at 20:30 Phenol (Cepastat Lozenge) 1 lozenge Q1H PRN MT SORE THROAT Last administered on 03/15/18at 14:19; Admin Dose 1 LOZENGE; Start 03/15/18 at 08:30 Diphenhydramine HCl (Benadryl) 25 mg Q6H PRN PO ITCHING Last administered on 03/15/18at 10:23; Admin Dose 25 MG; Start 03/15/18 at 10:30 RADHA BARNHART Mar 15, 2018 16:19
[2018-03-15 19:25] VITALS: BP 120/62; PULSE 95; RESP 20
--- NOTE | 2018-03-17 16:42 | OPR ---
DATE OF OPERATION: 03/14/2018 PREOPERATIVE DIAGNOSES: 1. Fibroid uterus. 2. Menorrhagia. POSTOPERATIVE DIAGNOSES: 1. Fibroid uterus. 2. Menorrhagia. OPERATION PERFORMED: Exam under anesthesia, fractional dilatation and curettage and hysteroscopy. OPERATIVE TECHNIQUE: Under general anesthesia, the patient was prepped and draped in the usual fashi on for vaginal surgery. Pelvic exam under anesthesia revealed the cervix to be firm, uterus about 6 weeks' size, and adnexa were negative for masses. Then, the heavy weight vaginal retractor was put i n place and the anterior lip of the cervix was grasped with an Allis clamp. Endocervical dilatation up to Hegar 5 was proceeded. Uterus was sounded to about 3 inches, then the hysteroscope was inserte d inside the uterine cavity and connected with the light source. The uterus was distended with saud l saline. There were no polyps nor fibroids seen. Endocervical curettage was done and a small amoun t of tissue was obtained. Endometrial curettage was done and a small amount of tissue was obtained. The uterus was intact during and after the procedure. The patient tolerated the procedure well. Es timated blood loss was minimal. Vital signs were stable during and after the procedure. Dictated By: SAUD FOLEY/ANNIE Conf#: [id number] DID#: [id number] CC: CLEMENTE COOK MD;*EndCC*
--- NOTE | 2018-03-17 21:54 | PN ---
DATE: 03/15/2018 SUBJECTIVE: The patient complains of some neck pain. She complains about the nurses in recovery sunday m and she was saying that the nurses in recovery room post-surgery was reporting to me the wrong mess age. She complained of heavy vaginal bleeding and severe lower abdominal cramps. The nurses were not telling me the right thing. I had talked to the nurses at night on in the recovery room and accordi ng to them the vital signs were stable. She did not have any heavy bleeding, it was just mild spotti ng on her napkin. OBJECTIVE VITAL SIGNS: She is afebrile. Vital signs stable. LUNGS: Clear. ABDOMEN: Soft, no tenderness noted. PELVIC: Mild vaginal spotting noted. No tenderness noted. ASSESSMENT AND PLAN: This was a D and C for menorrhagia and fibroids. So, I had a long discussion w ith the patient about the procedure and after the listening from her with her complaints that I did n ot explain to her the procedure before the surgery and, in fact, when she was in the clinic, I explai igor to her all these procedures and she signed the paper before the surgery. I then explained to her the procedure and I asked her if she had any questions and she said there was none. So now after th e surgery, she was complaining that I never told her about the curettage. But in reality this is wha t I do to all my patients, I explain to them the procedures before the patient goes to the hospital a s well as before the surgery. So, after long discussion, I asked her if she had any more questions, and she said, "none" and so I spoke with the nurse. During all this discussion, the nurse was jace t on she was present at bedside and I told her to put everything on her chart through the computer. Then, about 5 hours later, I was called by the nurse that the patient complains of neck pain, so I as ked her to call the hospitalist for her to be evaluated. Then, the hospital came and he evaluated th e patient and he gave the okay for the patient to be discharged. So, the patient was ordered to be d ischarged and to come back to the clinic in 1 week for the pathology report. Also, this patient had called the insurance company for her to be transferred to another provider after the report of her D and C for her to have further care. I would like this patient to be taken care of to the best that t he patient thinks. At this point of time, I think, I did everything to accommodate her and answer al l the questions, but she is still not satisfied with all my explanations up to the extent that she to ld me that I never explained to her the procedure. Dictated By: SAUD REAVES MD NS/NTS Conf#: [id number] DID#: [id number] CC: SAUD REAVES MD;*EndCC*
== END 2018-03-15 21:15 | disposition home or self-care (01) ==
LOC: SDS 09:52 → REC 18:07 → SDS 18:07 → MS1 21:03
PROVIDERS: ADMIT Obstetrics & Gynecology; ATTEND Obstetrics & Gynecology
DX: N92.0 Excessive and frequent menstruation with regular cycle (principal)
CPT/HCPCS: 58558; 80048; 84703; 85025; 86850; 86900; 86901; 87086; 88305; J1170; J2175; J2250; J2405; J3010; Z7500; Z7512; Z7610; G0378